=== PATIENT | male | born 1945 | race Caucasian/White ===

== ENCOUNTER 2019-03-02 14:56 | Emergency (ER) | payer MEDICARE, MEDICAID ==
[~2019-03-02] VITALS: Ht 177.8 cm; Wt 74.8 kg
[2019-03-02] MEDS ORDERED: AZIL40TA PO (15:17)
[2019-03-02] MEDS ORDERED: AZIL1TAB3 PO (15:17)
[2019-03-02] MEDS ORDERED: HYDROCODONE/APAP 5-325MG TABLET PO ONE (15:30)
[2019-03-02] MEDS ORDERED: HYDROCODONE/APAP 5-325MG TABLET ONE (15:38)
[2019-03-02 15:41] LABS: BASOPHILS % (AUTO) 0.4 % (0.0-2.0); EOSINOPHILS % (AUTO) 0.1 % (0.0-7.0); HEMATOCRIT 45.1 % (36.7-47.1); HEMOGLOBIN 14.9 g/dL (12.5-16.3); LYMPHOCYTES # (AUTO) 1.5 K/uL (20.0-40.0); LYMPHOCYTES % (AUTO) 12.5 % (20.5-51.5); MEAN CORPUSCULAR HEMOGLOBIN 27.9 uug (23.8-33.4); MEAN CORPUSCULAR HGB CONC 33 g/dL (32.5-36.3); MEAN CORPUSCULAR VOLUME 84.4 fL (73.0-96.2); MONOCYTES # (AUTO) 1.1 K/uL (2.0-10.0); MONOCYTES % (AUTO) 9.3 % (0.0-11.0); NEUTROPHILS # (AUTO) 9.1 K/uL (1.8-8.9); NEUTROPHILS % (AUTO) 77.7 % (38.5-71.5); PLATELET COUNT (AUTO) 267 K/uL (152-348); RED BLOOD CELL COUNT(AUTO) 5.35 MIL/uL (4.06-5.63); WHITE BLOOD COUNT (AUTO) 11.7 K/uL (3.6-10.2)
[2019-03-02 15:46] LABS: CREATININE 0.8 mg/dL (0.6-1.3); POTASSIUM 3.3 mmol/L (3.5-5.1)
[2019-03-02] MEDS ORDERED: IOHEXOL 350 100 ML INFUS..BTL ONE (16:49)
[2019-03-02] MEDS ORDERED: IV NORMAL SALINE 250 ML IV ONE (16:49)
[2019-03-02] MEDS ORDERED: SWABABLE VALVE TRANSFER SET EA MC ONE (16:49)
--- NOTE | 2019-03-02 17:46 | NUR ---
Patient discharged to home in stable conditon. Written and verbal after care instructions given with Wallace POLANCO as [place] translator and interpreter. Patient verbalizes understanding of instructions. IV removed. Catheter intact and site benign. Pressure and 4x4 gauze applied to site. No bleeding noted.
[2019-03-02 17:47] VITALS: BP 144/69
== END 2019-03-02 17:48 | disposition home or self-care (01) ==
LOC: ER 14:56
DX: M54.2 Cervicalgia (principal); R51 Headache; R42 Dizziness and giddiness; Z79.899 Other long term (current) drug therapy
CPT/HCPCS: 36415; 70450; 70498; 80048; 84484; 85025; 85651; 93005; 99284; Q9967; 70030-TC; A4663; J7050

== ENCOUNTER 2024-12-06 00:17 | Inpatient (IN) | payer MEDICARE, MEDICAID ==
[~2024-12-06] VITALS: Ht 172.7 cm; Wt 75.7 kg
[~2024-12-06 00:17] MED LIST: AZIL1TAB3 PO; AZIL40TA PO
[2024-12-06] MEDS ORDERED: METF-440 PO (00:30)
[2024-12-06] MEDS ORDERED: DEXL60CA3 PO (00:30)
[2024-12-06] MEDS ORDERED: HYDROMORPHONE 1 MG/1 ML DISP.SYRIN IV ONE (00:45)
[2024-12-06 01:01] LABS: PLATELET COUNT (AUTO) 323 K/uL (152-348); RED BLOOD CELL COUNT(AUTO) 4.97 MIL/uL (4.06-5.63); RED CELL DISTRIBUTION WIDTH 14.1 % (12.1-16.2); WHITE BLOOD COUNT (AUTO) 9.1 K/uL (3.6-10.2)
[2024-12-06 01:09] LABS: CREATININE 0.8 mg/dL (0.6-1.3); SODIUM SERUM 138 mmol/L (136-145); UREA NITROGEN, BLOOD 26 mg/dL (7-18)
[2024-12-06] MEDS ORDERED: HYDROMORPHONE 1 MG/1 ML DISP.SYRIN ONE (01:09)
[2024-12-06] MEDS ORDERED: ONDANSETRON 4 MG/2 ML VIAL ONE (01:09)
[2024-12-06] MEDS: HYDROMORPHONE 1 MG/1 ML DISP.SYRIN IV ONE (01:16)
[2024-12-06] MEDS: ONDANSETRON 4 MG/2 ML VIAL IV ONE (01:16)
[2024-12-06 01:18] LABS: ASPARTATE AMINOTRANSFERASE 5 U/L (15-37); TOTAL PROTEIN, SERUM 7.3 g/dL (6.4-8.2)
[2024-12-06] MEDS: IV NORMAL SALINE 500 ML BAG IV ONE (01:20)
[2024-12-06] MEDS ORDERED: IOHEXOL 300MG/ML 100 ML INFUS..BTL ONE (01:25)
[2024-12-06] MEDS ORDERED: IV D5W-0.45% NS +20 KCL 1,000 ML IV ONE (04:44)
[2024-12-06] MEDS: IV D5W-0.45% NS +20 KCL 1,000 ML IV ONE (04:45)
[2024-12-06 05:35] VITALS: BP 105/67
[2024-12-06] MEDS ORDERED: ONDANSETRON 4 MG/2 ML VIAL IV PRN (06:15)
[2024-12-06] MEDS ORDERED: MAGNESIUM HYDROXIDE 30 ML LIQUID UDC PO PRN (06:15)
[2024-12-06] MEDS ORDERED: ZOLPIDEM 5 MG TABLET PO PRN (06:15)
[2024-12-06] MEDS ORDERED: REMEDY ESSENTIAL ZINC PASTE 113 GM TP PRN (06:15)
[2024-12-06] MEDS ORDERED: ACETAMINOPHEN 325 MG TABLET PO PRN (06:15)
[2024-12-06 07:48] VITALS: BP 146/63; TEMP 97.7; O2SAT 98
[2024-12-06] MEDS ORDERED: DIATR MEGLU/DIATRIZOATE SODIUM 30 ML BOTTLE ONE (08:51)
[2024-12-06] MEDS: PANTOPRAZOLE SODIUM 40 MG VIAL IV SCH (10:06)
[2024-12-06] MEDS ORDERED: IV D5 1/2 NS 1000 ML 1,000 ML IV PRN (11:00)
[2024-12-06 11:33] VITALS: BP 112/47; TEMP 98; O2SAT 99
[2024-12-06] MEDS ORDERED: ZOLP10TA2 PO (12:29)
[2024-12-06] MEDS ORDERED: RIME75TA PO (12:29)
[2024-12-06] MEDS ORDERED: HYDR453.3 TP (12:30)
[2024-12-06] MEDS ORDERED: MAGN400T26 PO (12:31)
[2024-12-06] MEDS ORDERED: DOXA4TAB3 PO (12:31)
[2024-12-06] MEDS ORDERED: DULO60CA64 PO (12:32)
[2024-12-06] MEDS ORDERED: FENO145T21 PO (12:32)
[2024-12-06] MEDS ORDERED: TORS10TA17 PO (12:32)
[2024-12-06] MEDS ORDERED: POTA10TA10 PO (12:33)
[2024-12-06] MEDS ORDERED: PITA4TAB PO (12:34)
[2024-12-06] MEDS ORDERED: CHOL2000 PO (12:34)
[2024-12-06] MEDS ORDERED: GABA300C PO (12:35)
[2024-12-06] MEDS ORDERED: MEMA28CA5 PO (12:36)
[2024-12-06] MEDS ORDERED: ASPI-1420 PO (12:37)
[2024-12-06] MEDS ORDERED: ICOS1CAP PO (12:37)
[2024-12-06] MEDS ORDERED: EMPA25TA PO (12:40)
[2024-12-06] MEDS ORDERED: OZEMPIC SQ (12:42)
[2024-12-06] MEDS ORDERED: CLON0.5T4 PO (12:42)
[2024-12-06 16:00] VITALS: BP 119/48; TEMP 98.7; O2SAT 97
== END 2024-12-06 20:05 | disposition home or self-care (01) | DRG 395 ==
LOC: ER 00:31 → MEDSURG3 04:15
PROVIDERS: ADMIT Student in an Organized Health Care Education/Training Program
DX: K40.90 Unilateral inguinal hernia, without obstruction or gangrene, not specified as recurrent (principal); K21.9 Gastro-esophageal reflux disease without esophagitis; E86.0 Dehydration; K42.9 Umbilical hernia without obstruction or gangrene; E11.9 Type 2 diabetes mellitus without complications; R00.1 Bradycardia, unspecified; Z79.84 Long term (current) use of oral hypoglycemic drugs; Z79.899 Other long term (current) drug therapy; R79.89 Other specified abnormal findings of blood chemistry; Z96.641 Presence of right artificial hip joint; Z90.79 Acquired absence of other genital organ(s)
CPT/HCPCS: 36415; 71045; 74250; 83690; 85025; 85610; G0378; J1171; J2405; J2470; J7040; Q9963; Q9967